=== PATIENT | female | born 2005 | race Caucasian/White ===

== ENCOUNTER 2024-01-21 14:51 | Outpatient (CLI) | payer OTHER, SELFPAY ==
[2024-01-21 15:56] LABS: HCG,Quantitative 33 mIU/ml (0-5.42)
[2024-01-23 11:17] LABS: Progesterone 8.6 ng/mL (.)
== END 2024-01-21 23:59 | disposition home or self-care (01) ==
PROVIDERS: Visit Provider Obstetrics & Gynecology
DX: N92.6 Irregular menstruation, unspecified (principal)
CPT/HCPCS: 36415; 84144; 84702

== ENCOUNTER 2024-01-23 08:56 | Outpatient (CLI) | payer OTHER, SELFPAY ==
[2024-01-23 10:09] LABS: HCG,Quantitative 86 mIU/ml (0-5.42)
== END 2024-01-23 23:59 ==
LOC: LAB 08:57
PROVIDERS: Visit Provider Obstetrics & Gynecology
DX: Z32.00 Encounter for pregnancy test, result unknown (principal)
CPT/HCPCS: 36415; 84702

== ENCOUNTER 2024-02-16 13:50 | Outpatient (CLI) | payer OTHER, SELFPAY ==
[2024-02-16 14:41] LABS: Basophils # 0.1 K/mm3 (0-0.2); Basophils % 0.8 % (0.1-2.0); Eosinophils # 0.1 K/mm3 (0.0-0.4); Eosinophils % 1.2 % (0.1-12.0); Hematocrit 41.1 % (37.0-47.0); Hemoglobin 13.5 g/dL (12.2-16.2); Lymphocytes # 1.2 K/mm3 (0.7-4.5); Mean Corpuscular HGB Conc 32.9 g/dL (31.8-35.4); Mean Corpuscular Hemoglobin 30.9 pg (27.0-31.2); Mean Corpuscular Volume 93.9 fl (81-99); Mean Platelet Volume 8.6 fl (7.4-10.4); Monocytes # 0.3 K/mm3 (0.1-1.0); Monocytes % 4.5 % (1.7-9.3); Neutrophils # 4.2 K/mm3 (1.8-7.8); Neutrophils % 73.5 % (37.0-80.0); Platelet Count 232 K/mm3 (142-424); Red Blood Count 4.38 M/mm3 (4.20-5.40); Red Cell Distribution Width 13.6 % (11.5-17.5); White Blood Count 5.8 K/mm3 (4.5-13.0)
[2024-02-18 07:54] LABS: HCV Ab Non Reactive (Non Reactive); Hepatitis B Surface Antigen Negative (Negative); Rubella Antibodies, IgG 3.42 index (Immune >0.99)
[2024-02-18 09:09] LABS: HIV Screen 4th Generation wRfx Non Reactive (Non Reactive)
[2024-02-18 13:17] LABS: Rapid Plasma Reagin Ab Titer Non Reactive titer (NonRea<1:1)
[2024-02-20 08:49] LABS: Neisseria gonorrhoeae, NAA Negative (Negative)
== END 2024-02-16 23:59 | disposition home or self-care (01) ==
LOC: LAB 13:51
PROVIDERS: Visit Provider Obstetrics & Gynecology
DX: O26.891 Other specified pregnancy related conditions, first trimester (principal); Z3A.08 8 weeks gestation of pregnancy
CPT/HCPCS: 36415; 85025; 86593; 86703; 86762; 86850; 87086; 87340; 87491; 87591; G0432

== ENCOUNTER 2024-03-01 16:51 | Outpatient (CLI) | payer OTHER, SELFPAY | END 2024-03-01 23:59 | disposition home or self-care (01) | LOC: LAB.DROPOF 16:51 | PROVIDERS: PCP Obstetrics & Gynecology; Visit Provider Obstetrics & Gynecology | DX: O26.891 Other specified pregnancy related conditions, first trimester (principal); Z3A.10 10 weeks gestation of pregnancy; R11.2 Nausea with vomiting, unspecified | CPT/HCPCS: 87086 ==

== ENCOUNTER 2024-05-10 10:19 | Outpatient (CLI) | payer OTHER, SELFPAY ==
--- NOTE | 2024-05-10 10:20 | US_ITS ---
PROCEDURE: US OB /MATERNAL DETAIL CLINICAL INDICATION: US OB Complete 20 week + Anatomy Scan COMPARISON: No exams were available for comparison FINDINGS: Transabdominal sonographic images of the pelvis were obtained. From her established due date she is 20 weeks 2 days. Single viable intrauterine gestation. Cephalic position. Placenta: Posteriorplacenta grade 1. There is an average amount of fluid. The cervix appears satisfactory. Closed and measuring 3.46 cm in length. Complete survey performed and was unremarkable on the submitted images as in PACS. No discrete anomalies identified on survey imaging by technologist. Active fetus. Three-vessel cord with satisfactory umbilical cord insertion. 4- chamber heart noted. Situs, aortic arch, LVOT, RVOT, three-vessel view appear normal. An episode of a rhythm was noted. Survey of brain & ventricles Unremarkable. Cerebellum, thalamus, choroid plexus, cisterna magna appear normal. There is a 6.7 mm choroid plexus cyst. Face and neck survey unremarkable. Profile, nasion, lips and nose appeared normal. Diaphragm and chest views unremarkable. Abdomen: Both kidneys noted and unremarkable. Stomach and bladder noted and satisfactory. Spine: Survey of the spine satisfactory with no anomalies identified nor imaged. Cervical, thoracic, lower spine appear normal. Both arms and legs noted. Possible polydactyly of the foot. Amniotic Fluid: Adequate. MVP 3.70 cm Measurements: Average ultrasound age 20weeks 3days. Estimated due date by ultrasound age 1209/24/2024. Estimated weight 353g BPD = 20weeks 1day HC = 20weeks 4days AC = 20weeks 4days FL = 20weeks 3days Growth Percentile= 53 Heart Rate = 156bpm Cerebellum = 20weeks 1day Humerus = 20weeks 1day HC/AC is 1.18 FL/BPD is 0.71 FL/AC is 0.22 IMPRESSION: 1. Viable fetus in the cephalic presentation with a posterior placenta grade 1. 2. The fluid is within normal limits with an MVP of 3.70 cm. 3. There is a 6.7 mm choroid plexus cyst. 4. Fetus may have polydactyly on one foot. 5. The cork compounder noted an episode of cardiac arrhythmia. 6. Suggest an MFM consult. 7. The rest of the anatomical scan appears normal. 8. biometry is consistent with the dates. Dictated by: Matthias Olsen MD 05/10/2024 11:54 Matthias Olsen MD in [place] 05/10/2024 11:54
== END 2024-05-10 23:59 | disposition home or self-care (01) ==
LOC: RAD 10:20
PROVIDERS: PCP Obstetrics & Gynecology; Visit Provider Obstetrics & Gynecology
DX: O21.9 Vomiting of pregnancy, unspecified (principal); Z3A.20 20 weeks gestation of pregnancy
CPT/HCPCS: 76811

== ENCOUNTER 2024-06-22 11:33 | Outpatient (CLI) | payer OTHER, SELFPAY ==
[2024-06-22 12:18] LABS: Glucose,Fasting 84 mg/dl (74-100)
[2024-06-22 12:20] LABS: Basophils # 0.1 K/mm3 (0-0.2); Basophils % 0.6 % (0.1-2.0); Eosinophils # 0.1 K/mm3 (0.0-0.4); Eosinophils % 1.4 % (0.1-12.0); Hematocrit 36.3 % (37.0-47.0); Lymphocytes # 1.3 K/mm3 (0.7-4.5); Mean Corpuscular Hemoglobin 31.9 pg (27.0-31.2); Mean Corpuscular Volume 96.7 fl (81-99); Mean Platelet Volume 8.5 fl (7.4-10.4); Monocytes # 0.4 K/mm3 (0.1-1.0); Monocytes % 4.6 % (1.7-9.3); Neutrophils # 6.8 K/mm3 (1.8-7.8); Neutrophils % 78.3 % (37.0-80.0); Platelet Count 250 K/mm3 (142-424); Red Blood Count 3.76 M/mm3 (4.20-5.40); Red Cell Distribution Width 14.1 % (11.5-17.5); White Blood Count 8.7 K/mm3 (4.5-13.0)
[2024-06-22 13:28] LABS: Glucose 1 Hour 114 mg/dL (74-100)
[2024-06-24 13:19] LABS: Rapid Plasma Reagin Ab Titer Non Reactive titer (NonRea<1:1)
== END 2024-06-22 23:59 | disposition home or self-care (01) ==
LOC: LAB 11:33
PROVIDERS: Visit Provider Obstetrics & Gynecology
DX: Z34.90 Encounter for supervision of normal pregnancy, unspecified, unspecified trimester (principal)
CPT/HCPCS: 36415; 82951; 85025; 86593

== ENCOUNTER 2024-08-03 08:27 | Outpatient (CLI) | payer OTHER, SELFPAY ==
--- NOTE | 2024-08-03 08:27 | US_ITS ---
PROCEDURE: US OB BIOPHYSICAL PROFILE CLINICAL INDICATION: SGA COMPARISON: US US OB /MATERNAL DETAIL from 05/10/2024 FINDINGS: Transabdominal sonographic images of the uterus were obtained. From her established due date she is 32weeks 3days. The following parameters are obtained: Viable Fetus in the cephalic presentation with a posterior placenta grade 1. Average ultrasound age is 33weeks 0 days Estimated weight 2,047g Cervix measures 4.15 cm. Measurements: heart Rate = 161bpm BPD = 33weeks 2days, 67 percentile HC = 33weeks 3days, 37 percentile AC = 32weeks 5days, 58 percentile FL = 32weeks 4days, 41 percentile HC/AC is 1.05 FL/BPD is 0.76 FL/AC is 0.22 51 percentile Amniotic fluid index: 14.11cm, MVP 4.02 cm. Qualitative AFV:2 Breathing movements: 2 Gross Body Movements: 2 Tone: 2 Biophysical profile score: 8 Doppler evaluation of the umbilical artery: SD ratio: 1.98-2.43( normal up to 3.79 ) Resistive index: 0.59 No obvious anomalies evident.Kidneys, profile, stomach, bladder, four-chamber heart, three-vessel cord appear normal. IMPRESSION: 1. Viable fetus in the cephalic presentation with a posterior placenta grade 1. 2. The fluid is within normal limits with an amniotic fluid index of 14.11 cm, MVP 4.02 cm. 3. Biophysical profile is 8/8 with good breathing movement and movement seen. 4. SD ratio is normal 1.98-2.43. 5. There has been good interval growth with the fetus currently 51st percentile. 6. Limited anatomical scan appears normal. Dictated by: Matthias Olsen MD 08/03/2024 11:19 Matthias Olsen MD in [place] 08/03/2024 11:19
== END 2024-08-03 23:59 | disposition home or self-care (01) ==
LOC: RAD 08:27
PROVIDERS: PCP Obstetrics & Gynecology; Visit Provider Obstetrics & Gynecology
DX: O36.5930 Maternal care for other known or suspected poor fetal growth, third trimester, not applicable or unspecified (principal); Z3A.32 32 weeks gestation of pregnancy; R10.2 Pelvic and perineal pain; G89.29 Other chronic pain
CPT/HCPCS: 76816; 76819; 76820

== ENCOUNTER 2024-09-01 12:00 | Outpatient (CLI) | payer OTHER, SELFPAY | END 2024-09-01 23:59 | disposition home or self-care (01) | LOC: LAB.DROPOF 09-02 06:52 | PROVIDERS: PCP Obstetrics & Gynecology; Visit Provider Obstetrics & Gynecology | DX: Z34.90 Encounter for supervision of normal pregnancy, unspecified, unspecified trimester (principal) | CPT/HCPCS: 86403 ==

== ENCOUNTER 2024-09-24 11:49 | Inpatient (IN) | payer OTHER, SELFPAY ==
[2024-09-24 05:54] VITALS: BMI 30.1
[2024-09-24 06:15] LABS: Microscopic, Urine URINE MICROSCOPIC (MICROSCOPIC)
[2024-09-24 06:16] LABS: Appearance,Urine CLEAR (Clear); Bilirubin,Urine Negative (Negative); Blood, Urine TRACE-I (Negative); Color,Urine YELLOW (Yellow); Glucose,Urine (UA) Negative (Negative); Ketones,Urine Negative (Negative); Leukocyte Esterase,Urine Negative (Negative); Nitrate,Urine Negative (Negative); PH,Urine 6.5 (5.0-8.5); Protein,Urine Negative (Negative); Specific Gravity, Urine <= 1.005 (1.005-1.030); Urobilinogen,Urine 0.2 EU/dl (0.2)
[2024-09-24 06:26] VITALS: BP 120/77; PULSE 96; RESP 20; TEMP 36.9; O2SAT 99; BMI 30.1
[2024-09-24 06:26] LABS: Barbiturates Screen,Urine Negative ng/ml (<200)
[2024-09-24 06:27] LABS: Benzodiazepines Screen,Urine Negative ng/ml (<200)
[2024-09-24 06:28] LABS: Amphetamine/Metha Screen,Urine Negative ng/ml (<1000); Methadone Screen,Urine Negative ng/ml (<300)
[2024-09-24 06:29] LABS: Cannabinoid Screen,Urine Negative ng/ml (<50); Cocaine Screen,Urine Negative ng/ml (<300)
[2024-09-24 06:30] LABS: Opiate Screen,Urine Negative ng/ml (<300)
[2024-09-24 06:31] LABS: Phencyclidine Screen,Urine Negative ng/ml (<25)
[2024-09-24 06:46] LABS: RBC,Urine Occasional #/hpf (0-3); Squamous Epithelial Cell,Urine Occasional #/hpf (0-5)
[2024-09-24 12:15] LABS: Basophils # 0.1 K/mm3 (0-0.2); Basophils % 0.4 % (0.1-2.0); Eosinophils % 0.2 % (0.1-12.0); Hematocrit 32.7 % (37.0-47.0); Hemoglobin 11.2 g/dL (12.2-16.2); Lymphocytes # 1.1 K/mm3 (0.7-4.5); Lymphocytes % 9.4 % (10-50); Mean Corpuscular HGB Conc 34.3 g/dL (31.8-35.4); Mean Corpuscular Hemoglobin 30.2 pg (27.0-31.2); Mean Corpuscular Volume 88.1 fl (81-99); Monocytes # 0.4 K/mm3 (0.1-1.0); Monocytes % 3.7 % (1.7-9.3); Neutrophils # 10.3 K/mm3 (1.8-7.8); Neutrophils % 86.4 % (37.0-80.0); Platelet Count 203 K/mm3 (142-424); Red Blood Count 3.72 M/mm3 (4.20-5.40); Red Cell Distribution Width 13.8 % (11.5-17.5); White Blood Count 11.9 K/mm3 (4.5-13.0)
[2024-09-24 12:17] LABS: MANUAL DIFFERENTIAL MANUAL DIFFERENTIAL (MANUAL DIFF)
[2024-09-24 12:25] LABS: Lymphocytes % 7 % (10-50); Monocytes % 3 % (2-9); Neutrophils % 90 % (42-76); Platelet Estimate Normal; RBC Morphology Normal; Total Cells Counted 100
[2024-09-24] MEDS: BUTORPHANOL TARTRATE 1 MG/ML VIAL IV (12:31)
[2024-09-24] MEDS: SODIUM CHLORIDE 0.9% 10ML FLUSH SYRINGE 10 ML IV (12:32)
--- NOTE | 2024-09-24 12:46 | EXP.OB.APHP ---
OB - H&P: HPI Antepartum History of Present Illness Chief complaint: regular, painful contractions History of present illness: Ms Rosa Cohen is a 18 yo at 39w6d who presented to [facility] L&D with complaint of regular, painful contractions that started around 0400 this morning. Upon arrival to L&D cervix was 2/65/-2. She progressed to 4/75/-1. No leakage of fluid or vaginal bleeding. Baby is active. GBS negative. She has had good care. History of Present Criteria for establishing EDC:: LMP confirmed by 1st trimester US care: good care Ultrasounds: normal mid trimester US Obstetrical complications: none Medical complications: none Labs Blood type: A (+) positive Rubella: immune RPR/VDRL: nonreactive GBS status: negative HBsAG: negative [facility] Disclaimer: The information contained in this section may have been updated after the patient was seen, as this information can be updated by other users. Medical History (Updated 09/24/24 @ 12:51 by Joyce Claire DO) with 39 completed weeks gestation Active labor at term Choroid plexus cyst of fetus in rodriguez Nausea and vomiting during Chronic pelvic pain in female Dyspareunia Dysmenorrhea Menorrhagia Endometriosis Surgical History H/O laparoscopy Family History Other Asthma Cancer Diabetes Hyperlipidemia Social History Smoking Status: Never smoker alcohol intake: never substance use type: denies use current occupational status: unemployed Travel in the last 8 weeks: None Have you lived/traveled outside US in past 30 days?: No Contact w/someone who lives/traveled outside US past 30 days?: No Exposure to someone with infectious disease in past 14 days?: No Do you have a fever (greater than 100.4 F or 38 C)?: No Have you tested positive for COVID-19: No Exposed to someone with COVID-19 in past 14 days?: No Do you have a sore throat?: No Do you have a cough?: No Do you have any weakness?: No Do you have any diarrhea?: No Are you experiencing any unusual bleeding?: No Do you have any muscle aches/pain?: No Do you have any abdominal pain?: No Are you experiencing loss of taste or smell?: No Other Medical History Have you received the Flu Vaccine for this season: No Have you received the Pneumonia Vaccine: No Review of Systems Review of Systems Review of systems:: pertinent systems reviewed and negative unless documented below *Genitourinary Comments: + regular painful uterine contractions Meds Home Medications and Allergies Home Medications ?Medication ?Instructions ?Recorded ?Confirmed ?Type vits no.126-ferrous fum 1 tab PO DAILY 03/01/24 09/24/24 History 28 mg iron-folic acid 800 mcg tablet (Classic ) New Prescriptions to Start Prescriptions: Allergies Allergy/AdvReac Type Severity Reaction Status Date / Time No Known Allergies Allergy Verified 09/22/24 09:46 OB - H&P: Exam Physical Exam Vital signs: Temp Pulse Resp BP Pulse Ox O2 Del Method 98.5 F 96 H 20 120/77 99 Room Air 09/24/24 06:26 09/24/24 06:26 09/24/24 06:26 09/24/24 06:26 09/24/24 06:26 09/24/24 06:26 Constitutional no acute distress and cooperative Routine HEENT Exam Head: Present normocephalic and atraumatic Eye: Absent conjunctivae pink ENT: Present mucous membranes moist Routine Neck Exam Present full ROM Routine Respiratory Exam Present CTA bilaterally and normal respiratory effort Routine Cardiovascular Exam Present RRR Routine Abdominal Exam Present soft (Gravid); Absent tenderness Routine Rectal Exam Patient deferred: visual exam Routine Exam External: Present normal urethra appearance; Absent erythema, swelling, tenderness, lesions or lacerations Detailed Labor and Delivery Exam Dilation (cm): 4 Effacement (%): 75 Cervix position: mid station: -1 Consistency: soft Membranes: intact Baseline heart rate: 135 monitor accelerations: Present monitor decelerations: None intermediate project manager variability: Moderate (11-25) Contraction frequency (min): 3 OB - Results Labs Labs: Short CBC 09/24/24 Range/Units 12:05 WBC 11.9 (4.5-13.0) K/mm3 Hgb 11.2 L (12.2-16.2) g/dL Hct 32.7 L (37.0-47.0) % Plt Count 203 (142-424) K/mm3 Urine 09/24/24 Range/Units 05:55 Urine Color Yellow (Yellow) Urine Appearance Clear (Clear) Urine pH 6.5 (5.0-8.5) Ur Specific [place] <= 1.005 (1.005-1.030) Urine Protein Negative (Negative) Urine Glucose (UA) Negative (Negative) OB - A/P Antepartum (1) Active labor at term: Status: Acute (2) with 39 completed weeks gestation: Status: Acute Additional Plan Plan: expectant management Additional Information:: Admit to L&D for active labor Close monitoring Anticipate
[2024-09-24 14:49] LABS: RPR W/RFX Titers Nonreactive (Nonreactive)
[2024-09-24] MEDS: LACTATED RINGERS 1000ML 1,000 ML 999 ML IV (16:00)
--- NOTE | 2024-09-24 16:08 | EXP.ANES.CKL ---
[facility] Disclaimer: The information contained in this section may have been updated after the patient was seen, as this information can be updated by other users. Medical History with 39 completed weeks gestation Active labor at term Choroid plexus cyst of fetus in rodriguez Nausea and vomiting during Chronic pelvic pain in female Dyspareunia Dysmenorrhea Menorrhagia Endometriosis Surgical History H/O laparoscopy Family History Other Asthma Cancer Diabetes Hyperlipidemia Social History Smoking Status: Never smoker alcohol intake: never substance use type: denies use current occupational status: unemployed Travel in the last 8 weeks: None Have you lived/traveled outside US in past 30 days?: No Contact w/someone who lives/traveled outside US past 30 days?: No Exposure to someone with infectious disease in past 14 days?: No Do you have a fever (greater than 100.4 F or 38 C)?: No Have you tested positive for COVID-19: No Exposed to someone with COVID-19 in past 14 days?: No Do you have a sore throat?: No Do you have a cough?: No Do you have any weakness?: No Do you have any diarrhea?: No Are you experiencing any unusual bleeding?: No Do you have any muscle aches/pain?: No Do you have any abdominal pain?: No Are you experiencing loss of taste or smell?: No [facility] Anesthesia Checklist Patient Identification Patient Identification: Arm Band and Verbal (Name & ) Structural Data Admitted From: Inpatient Planned Operative Procedure/s: Labor epidural Consent for Planned Operative Procedure(s) Verified: Yes Verified Documents: History and Physical NPO Status Verified Time NPO: 00:00 Chart Verification Results Verified: CBC Additional verifications Anesthesia Reactions: No Airway Assessment Mallampati Score:: Class II C-Spine Mobility Assessed: Yes TMJ Mobility Assessed: Yes Dentition: Good Dentition Neurological Assessment Level of Consciousness: Awake Hx Seizures: No Numbness or tingling in extremities: No Anesthesia Plan Anesthesia Risk discussed: Yes Anesthesia Plan: Verified ASA Class: II Anesthesia Type: Epidural
[2024-09-24] MEDS: DEXTROSE 5%-LACTATED RINGERS 1,000 ML 500 ML IV (18:05)
[2024-09-24] MEDS: OXYTOCIN/RINGERS LACTATE 30 UNITS/500 ML BAG IV (18:05)
[2024-09-24] MEDS: OXYTOCIN/RINGERS LACTATE 30 UNITS/500 ML BAG 40 UNITS IV (23:40)
[2024-09-25] MEDS: METHYLERGONOVINE MALEATE 0.2MG/ML INJ 0.2 MG IM
--- NOTE | 2024-09-25 00:03 | EXP.DN ---
Delivery Note Delivery Date:: 09/25/24 Delivery Time:: 23:37 Anesthesia Type: Epidural Was labor medically induced?: No Gestational age (weeks): 39 Infant delivered prior to 39 weeks?: No Gender: Male at 1 minute: 8 at 5 minutes: 9 Delivery Procedure:: Mom complete with epidural. Pushed for approximately 3 hours. Mediolateral episiotomy performed secondary to maternal exhaustion, poor expulsive effort and tight perineal band. Head delivered spontaneously over midline episiotomy in OA position. Left hand delivered spontaneously. Anterior shoulder delivered with gentle downward pressure. Posterior shoulder and remainder of body delivered spontaneously. Body cord x 1 delivered through. Baby placed on maternal abdomen, mouth and nares bulb suctioned, warmed/dried and stimulated. Delayed cord clamping was performed for 90 seconds. Cord was clamped and cut by father of baby. Cord blood was obtained. Placenta delivered spontaneously and intact. Umbilical cord was noted to be meconium stained. Placental calcifications noted. Placenta will be sent to pathology for review. Mediolateral episiotomy repaired with 3-0 Vicryl. Hemostasis noted. Mom and baby were skin to skin and doing well after delivery. Live male babyKamran APGARs 8 (1 min), 9 (5 min) EBL 150 mL Placental Delivery Description: Spontaneous
[2024-09-25] MEDS: WITCH HAZEL 40 PADS/BOX 1 EACH TP ×2 (00:17→17:49)
[2024-09-25] MEDS: BENZOCAINE-MENTHOL SPRAY 56GM CAN TP ×2 (00:17→17:49)
[2024-09-25] MEDS: IBUPROFEN 400 MG TABLET 800 MG PO ×3 (00:18→16:14)
[2024-09-25] MEDS: ACETAMINOPHEN 500MG TAB 1000 MG PO ×4 (00:18→21:56)
[2024-09-25] MEDS: OXYCODONE 5MG IMMEDIATE RELEASE TABLET 5 MG PO (01:55)
[2024-09-25 08:04] LABS: Basophils # 0.1 K/mm3 (0-0.2); Basophils % 0.5 % (0.1-2.0); Eosinophils % 0.2 % (0.1-12.0); Hemoglobin 11.4 g/dL (12.2-16.2); Lymphocytes # 1.5 K/mm3 (0.7-4.5); Lymphocytes % 9.2 % (10-50); Mean Corpuscular HGB Conc 33.5 g/dL (31.8-35.4); Mean Corpuscular Hemoglobin 29.7 pg (27.0-31.2); Mean Corpuscular Volume 88.7 fl (81-99); Mean Platelet Volume 9.3 fl (7.4-10.4); Monocytes # 0.9 K/mm3 (0.1-1.0); Monocytes % 5.4 % (1.7-9.3); Neutrophils # 14.3 K/mm3 (1.8-7.8); Neutrophils % 84.8 % (37.0-80.0); Platelet Count 219 K/mm3 (142-424); Red Blood Count 3.83 M/mm3 (4.20-5.40); Red Cell Distribution Width 13.9 % (11.5-17.5); White Blood Count 16.9 K/mm3 (4.5-13.0)
[2024-09-25 08:08] LABS: MANUAL DIFFERENTIAL MANUAL DIFFERENTIAL (MANUAL DIFF)
[2024-09-25 08:09] VITALS: BP 113/59; PULSE 76; RESP 19; TEMP 36.7; O2SAT 100
[2024-09-25 10:31] LABS: Eosinophils % 2 % (0-3); Lymphocytes % 8 % (10-50); Monocytes % 1 % (2-9); Neutrophils % 89 % (42-76); Platelet Estimate Normal; RBC Morphology Normal; Total Cells Counted 100
--- NOTE | 2024-09-25 14:15 | EXP.ACUTE.PN ---
Subjective *Date: 09/25/24 *Time: 14:15 Interval history: PPD # 1 s/p Feeling well. Pain controlled. Breast feeding. Lochia is appropriate. Voiding without difficulty and passing flatus. Tolerating regular diet. Denies fever/chills, chest pain and shortness of breath. No headaches, vision changes, lightheadedness/dizziness. No lower extremity swelling. Ambulating well ad kristen. Medical Exam Vital signs and Labs for Last 24 Hours: Vital Signs Temp Pulse Resp BP Pulse Ox O2 Del Method 09/25/24 08:09 98.0 F 76 19 113/59 L 100 Room Air Laboratory Results - last 24 hr 09/25/24 07:37: WBC 16.9 H D, RBC 3.83 L, Hgb 11.4 L, Hct 34.0 L, MCV 88.7, MCH 29.7, MCHC 33.5, RDW 13.9, Plt Count 219, MPV 9.3, Neut % (Auto) 84.8 H, Lymph % (Auto) 9.2 L, [place] % (Auto) 5.4, Eos % (Auto) 0.2, Baso % (Auto) 0.5, Neut # (Auto) 14.3 H, Lymph # (Auto) 1.5, [place] # (Auto) 0.9, Eos # (Auto) 0.0, Baso # (Auto) 0.1, Total Counted 100, Neutrophils % (Manual) 89 H, Lymphocytes % (Manual) 8 L, Monocytes % (Manual) 1 L, Eosinophils % (Manual) 2, Platelet Estimate Normal, RBC Morphology Normal I & O for Labs for Last 24 Hours: Intake & Output 09/22/24 09/23/24 09/24/24 09/25/24 23:59 23:59 23:59 23:59 Weight 170 lb Head: Present atraumatic and normocephalic ENT: Present mucous membranes moist Neck: Present normal inspection and full ROM Respiratory: Present CTA bilaterally and normal respiratory effort Cardiac: Present Reg Rate and Rhythm GI: Present soft; Absent distention Comments:: Uterine fundus firm and below umbilicus Rectal (female): Present deferred (female): Present deferred Neuro: Present alert, awake and moves all extremities Assessment and Plan *Assessment and plan (1) Status post normal vaginal delivery: Status: Acute Category: Medical (2) Active labor at term: Status: Acute Category: Medical (3) with 39 completed weeks gestation: Status: Acute Category: Medical Code(s): Z3A.39 - 39 weeks gestation of Plan Continue routine care Encouraged increased ambulation Plan d/c home tomorrow
[2024-09-25] MEDS: PRENATAL MULTIVITAMIN W/IRON 1 EACH PO (16:13)
[2024-09-26 08:30] VITALS: BP 119/57; PULSE 96; RESP 18; TEMP 36.8; O2SAT 100
--- NOTE | 2024-09-26 11:03 | EXP.DC.SUM ---
General Admission date:: 09/24/24 Discharge date: 09/26/24 HPI HPI HPI: PPD # 2 s/p Feeling well. Pain controlled. Breast feeding. Lochia is light. Voiding without difficulty and passing flatus. Tolerating regular diet. Denies fever/chills, chest pain and shortness of breath. No headaches, vision changes, lightheadedness/dizziness. No lower extremity swelling. Ambulating well ad kristen. Hospital Course Hospital Course Hospital Course: Ms Rosa Cohen is a 18 yo at 39w6d who presented to [facility] L&D with complaint of regular, painful contractions that started around 0400 this morning. Upon arrival to L&D cervix was 2/65/-2. She progressed to 4/75/-1. No leakage of fluid or vaginal bleeding. Baby is active. GBS negative. She has had good care. She progressed to 8-9 cm without intervention. However, contractions spaced out. Pitocin was started for augmentation. She progressed to complete. She pushed for approximately 3 hours and a mediolateral episiotomy was performed for maternal exhaustion, poor expulsive effort and tight perineal band. She had a normal spontaneous vaginal delivery on 09/25/24 at 2337. She delivered a live male baby, Kamran, weighing 7 lb 14 oz, APGARs 8 (1 min), 9 (5 min). EBL 150 mL. She did well . Pain controlled. Breast feeding. Light lochia. Voiding without difficulty and passing flatus. Tolerating regular diet. Denies fever/chills, chest pain and shortness of breath. No headaches, dizziness/lightheadedness or vision changes. Vital signs stable, afebrile. Heart regular rate and rhythm. Lungs clear to auscultation. Abdomen soft, nontender. No lower extremity swelling. Ambulating well ad kristen. Normal hospital course. She was discharged to home on POD # 2 with instructions to follow-up in the office in 2 weeks or sooner if needed. Exam Data for Last 24 hours Vital signs and Labs for Last 24 Hours: Temp Pulse Resp BP Pulse Ox O2 Del Method 98.2 F 96 H 18 119/57 L 100 Room Air 09/26/24 08:30 09/26/24 08:30 09/26/24 08:30 09/26/24 08:30 09/26/24 08:30 09/26/24 08:30 I & O for Last 24 hours: Intake & Output 09/23/24 09/24/24 09/25/24 09/26/24 23:59 23:59 23:59 23:59 Weight 170 lb Constitutional Constitutional: no acute distress and cooperative *Routine HEENT Exam Head: Present normocephalic and atraumatic Eye: Absent conjunctivae pink ENT: Present mucous membranes moist *Routine Neck Exam Neck: Present full ROM *Routine Respiratory Exam Respiratory: Present CTA bilaterally and normal respiratory effort *Routine Cardiovascular Exam Cardiovascular: Present RRR *Routine Abdominal Exam Abdominal: Present soft; Absent tenderness or distended *Routine Rectal Exam Patient deferred: visual exam *Routine Exam Patient deferred: external exam *Routine Extremities Exam Extremities: Present full ROM; Absent edema or calf tenderness *Routine Neurological Exam Neurological: Present alert, moving all extremities and normal speech Routine Psychiatric Exam Psychiatric: Present normal affect and cooperative DS: Diagnosis Discharge Diagnosis (1) Status post normal vaginal delivery: Status: Acute (2) Active labor at term: Status: Acute (3) with 39 completed weeks gestation: Status: Acute Code(s): Z3A.39 - 39 weeks gestation of Meds Home Medications and Allergies Home Medications ?Medication ?Instructions ?Recorded ?Confirmed ?Type vits no.126-ferrous fum 1 tab PO DAILY 03/01/24 09/24/24 History 28 mg iron-folic acid 800 mcg tablet (Classic ) ibuprofen 800 mg tablet 800 mg PO Q8H PRN pain #20 tabs 09/25/24 Rx New Prescriptions to Start Prescriptions: ibuprofen Joyce Claire Allergies Allergy/AdvReac Type Severity Reaction Status Date / Time No Known Allergies Allergy Verified 09/22/24 09:46 Discharge Plan Disposition Patient Disposition: Home, Self-Care Condition: Good Discharge Order Discharge Orders: Discharge Order (Routine); Ordered 09/26/24 Ordered By: Joyce Claire Follow up Plan Follow up with: Joyce Claire DO [Primary Care Provider] - 2 weeks Prescriptions/Medication Reconciliation: New ibuprofen 800 mg tablet 800 mg PO Q8H PRN (Reason: pain) Qty: 20 0RF Continued Classic 28 mg iron- 800 mcg tablet 1 tab PO DAILY Problem Reconciliation Problems Reviewed?: Yes Patient Discharge Instructions ACTIVITY: Limited activity DIET: continue same diet and regular diet Additional Instructions: Congratulations!! Discharge: 1. Take 800 mg Ibuprofen every 8 hours as needed for pain. You can also take 500-1000 mg of Tylenol in between doses, every 6-8 hours. 2. Nothing in the vagina for 6 weeks - no intercourse, douching or tampons. No tub baths/hot tubs or swimming pools 3. Reasons to return to L&D or call On-Call doctor - fever (greater than 100.4) - heavy vaginal bleeding (soaking through 1 pad in less than 2 hours) - vaginal discharge (malodorous and/or purulent) - severe headaches not resolved by medication or rest and leg tenderness/edema 4. depression/blues - Normal to feel anxious/overwhelmed for first 2 weeks - Talk to your doctor if: severe anxiety, trouble bonding with baby, withdrawing from other family members, thoughts of harming yourself or others Joyce Claire DO [facility] [phone] Patient Instructions: Depression, Hemorrhage, DI for Labor and Delivery, Vaginal , DI for Pre-eclampsia, [facility] Post Discharge Instructions Print Language: Vietnamese Providers Primary Care Provider: Joyce Claire Admit Provider: Joyce Claire Attending Provider: Lavern Pyle
== END 2024-09-26 12:47 | disposition home or self-care (01) | DRG 807 ==
LOC: OBOUT 11:50 → OB 11:50
PROVIDERS: Admitting Provider Obstetrics & Gynecology; PCP Obstetrics & Gynecology; Visit Provider Obstetrics & Gynecology
DX: O75.81 Maternal exhaustion complicating labor and delivery (principal); Z37.0 Single live birth; Z3A.39 39 weeks gestation of pregnancy; O69.82X0 Labor and delivery complicated by other cord entanglement, without compression, not applicable or unspecified
CPT/HCPCS: 36415; 59025; 80307; 81001; 85007; 85025; 86592; 86850; 94761; G0283; J0595; J3010; J7120

== ENCOUNTER 2024-09-28 17:08 | Emergency (ER) | payer OTHER, SELFPAY ==
[2024-09-28 17:09] VITALS: BP 107/70; PULSE 97; RESP 17; TEMP 36.6; O2SAT 99; BMI 27.4
[2024-09-28 17:12] VITALS: BP 137/75; PULSE 83; O2SAT 99
--- NOTE | 2024-09-28 17:15 | ED_ITS ---
Discharge Plan Disposition Patient Disposition: Home, Self-Care Condition: Good Prescriptions Prescriptions: No Action Classic 28 mg iron- 800 mcg tablet 1 tab PO DAILY ibuprofen 800 mg tablet 800 mg PO Q8H PRN (Reason: pain) Qty: 20 0RF Referrals Follow up/Referrals: Provider,Referral, [Primary Care Provider] - See instructions Activity Restrictions/Add. Instructions Additional Instructions/Restrictions: As we discussed follow-up with Dr. Trotter as scheduled. If you have any increasing fever pain or soaking more than a pad every 2 hours follow-up with [facility] or return to the ER as needed. Clinical Impressions Clinical Impression: Hemorrhage after vaginal delivery Print Language Print Language: Maltese Discharge ED Provider: Ranjeet Henderson General Adult HPI <GONZALES Marr - Last Filed: 09/28/24 19:49> General Chief complaint: Vaginal Bleeding Stated complaint: had a baby and pulled a stitch Time Seen by Provider: 09/28/24 17:15 History of Present Illness HPI narrative: Patient presents for vaginal bleeding. Patient had a vaginal delivery [address] Claire but also had an episiotomy. Patient states today that she was walking to the house and felt a gush of blood. She soaked her pad and per her discharge instructions came to the ER for evaluation. She denies any crease in abdominal discomfort, no fever chills clots passed. Related Data Home Medications ?Medication ?Instructions ?Recorded ?Confirmed vits no.126-ferrous fum 1 tab PO DAILY 03/01/24 09/24/24 28 mg iron-folic acid 800 mcg tablet (Classic ) Previous Rx's ?Medication ?Instructions ?Recorded ibuprofen 800 mg tablet 800 mg PO Q8H PRN pain #20 tabs 09/25/24 Allergies Allergy/AdvReac Type Severity Reaction Status Date / Time No Known Allergies Allergy Verified 09/22/24 09:46 PFSH <GONZALES Marr - Last Filed: 09/28/24 19:49> [facility] Disclaimer: The information contained in this section may have been updated after the patient was seen, as this information can be updated by other users. Medical History (Updated 09/28/24 @ 18:16 by GONZALES Marr) Status post normal vaginal delivery with 39 completed weeks gestation Active labor at term Choroid plexus cyst of fetus in rodriguez Nausea and vomiting during Chronic pelvic pain in female Dyspareunia Dysmenorrhea Menorrhagia Endometriosis Surgical History H/O laparoscopy Family History Other Asthma Cancer Diabetes Hyperlipidemia Social History Smoking Status: Never smoker alcohol intake: never substance use type: denies use current occupational status: unemployed Travel in the last 8 weeks: None Have you lived/traveled outside [place] in past 30 days?: No Contact w/someone who lives/traveled outside [place] past 30 days?: No Exposure to someone with infectious disease in past 14 days?: No Do you have a fever (greater than 100.4 F or 38 C)?: No Have you tested positive for COVID-19: No Exposed to someone with COVID-19 in past 14 days?: No Do you have a sore throat?: No Do you have a cough?: No Do you have any weakness?: No Do you have any diarrhea?: No Are you experiencing any unusual bleeding?: No Do you have any muscle aches/pain?: No Do you have any abdominal pain?: Yes Are you experiencing loss of taste or smell?: No Other Medical History Have you received the Flu Vaccine for this season: No Have you received the Pneumonia Vaccine: No <GONZALES Marr - Last Filed: 09/28/24 19:49> ROS Obtained: Yes Systems reviewed as appropriate & no additional complaints except as documented Physical Exam <GONZALES Marr - Last Filed: 09/28/24 19:49> General General appearance: alert and in no apparent distress Respiratory Respiratory exam: Present normal lung sounds bilaterally Cardiovascular Cardiovascular exam: Present regular rate Neurological Exam Neurological exam: Present alert and oriented X3 Medical Decision Making <GONZALES Marr - Last Filed: 09/28/24 19:49> Medical Records Medical records reviewed: Yes I reviewed the patient's medical records. Screening: Per USPSTF and CDC recommendations, given the prevalence of disease in our region, it is our hospital?s policy to screen for HIV and viral Hepatitis for all patients aged 18 and over and those with ongoing risk factors. David Inquiry Pt receiving controlled substance: No Vital Signs: 09/28/24 17:09 09/28/24 17:12 09/28/24 18:23 Temperature 97.8 F 97.8 F Temperature Source Oral Oral Pulse Rate 83 84 Pulse Rate [Right] 97 H Respiratory Rate 17 17 Blood Pressure 137/75 121/84 Blood Pressure [Right Arm] 107/70 L Blood Pressure Mean [Right Arm] 82 Blood Pressure Source Automatic Cuff Blood Pressure Source [Right Arm] Automatic Cuff 02 Sat by Pulse Oximetry 99 99 Oxygen Delivery Method Room Air Room Air Room Air Medical Decision Narrative: In summary patient is a 18-year-old female who presents to the emergency department for evaluation of postdelivery vaginal bleeding. Patient is hemodynamically stable upon arrival, afebrile. Physical exam is remarkable for dark venous blood in the vaginal introitus with 1 clot manually removed. The episiotomy repair appears to be intact with sutures in place.. Differential diagnosis includes retained products of conception versus expected postdelivery bleeding. Initial workup will be conducted with consultation with Dr. Pyle of [employer]. And I had an interactive discussion with Dr. Pyle of my findings and she came into evaluate the patient directly. She also concurred after fundal massage that this is normal expected postdelivery uterine bleeding. Dr. Pyle gave the patient strict return precautions including fever, acute abdominal pain, or soaking more than a pad every 2 hours or passing of a large amount of fresh blood. Thus patient is appropriate for discharge with her standard follow-up with Dr. Claire as scheduled. <Ranjeet Henderson MD - Last Filed: 09/28/24 20:37> Vital Signs: 09/28/24 17:09 09/28/24 17:12 09/28/24 18:23 Temperature 97.8 F 97.8 F Temperature Source Oral Oral Pulse Rate 83 84 Pulse Rate [Right] 97 H Respiratory Rate 17 17 Blood Pressure 137/75 121/84 Blood Pressure [Right Arm] 107/70 L Blood Pressure Mean [Right Arm] 82 Blood Pressure Source Automatic Cuff Blood Pressure Source [Right Arm] Automatic Cuff 02 Sat by Pulse Oximetry 99 99 Oxygen Delivery Method Room Air Room Air Room Air Medical Decision Narrative: In summary patient is a 18-year-old female who presents to the emergency department for evaluation of postdelivery vaginal bleeding. Patient is hemodynamically stable upon arrival, afebrile. Physical exam is remarkable for dark venous blood in the vaginal introitus with 1 clot manually removed. The episiotomy repair appears to be intact with sutures in place.. Differential diagnosis includes retained products of conception versus expected postdelivery bleeding. Initial workup will be conducted with consultation with Dr. Pyle of [employer]. And I had an interactive discussion with Dr. Pyle of my findings and she came into evaluate the patient directly. She also concurred after fundal massage that this is normal expected postdelivery uterine bleeding. Dr. Pyle gave the patient strict return precautions including fever, acute abdominal pain, or soaking more than a pad every 2 hours or passing of a large amount of fresh blood. Thus patient is appropriate for discharge with her standard follow-up with Dr. Claire as scheduled. I was consulted by the KADIE, and we discussed the complexity of the problems being addressed. I approved the treatment and management plan for this patient's care in the Emergency Department, thus performing a substantive portion of the medical decision making. Ranjeet Henderson MD Critical Care <GONZALES Marr - Last Filed: 09/28/24 19:49> Critical Care Time Critical Care Time: No
--- NOTE | 2024-09-28 17:26 | PC.NURSE ---
Mg Beth PA-C at bedside for exam. This RN was at bedside also.
--- NOTE | 2024-09-28 17:26 | PC.NURSE ---
Maria Luisa Pyle for OBGYN consult
--- NOTE | 2024-09-28 17:27 | PC.NURSE ---
Mg Beth PA-C s/w Dr. Laevrn Pyle.
--- NOTE | 2024-09-28 17:53 | PC.NURSE ---
Dr. Aretha Pyle and Enma Beth PAC at bedside
[2024-09-28 18:23] VITALS: BP 121/84; PULSE 84; RESP 17; TEMP 36.6; O2SAT 98
== END 2024-09-28 18:27 | disposition home or self-care (01) ==
PROVIDERS: Emergency Provider Emergency Medicine
DX: O72.1 Other immediate postpartum hemorrhage (principal)
CPT/HCPCS: 99282